=== PATIENT | male | born 1990 | race Caucasian/White ===

== ENCOUNTER 2021-03-15 21:36 | Emergency (ER) | payer OTHER ==
[~2021-03-15] VITALS: Ht 177.8 cm; Wt 83.9 kg
[~2021-03-15 21:36] MED LIST: DOXYCYCLINE 10100 MG PO; IBUPROFEN 600600 M1 PO; IBUPROFEN 800800 M1 PO; KEFLEX500 MG PO; NORCO 5-325 TA1 EACH PO; SENOKOT-S1 TA1 PO; ZOFRAN ODT4 MG PO
[2021-03-15] MEDS ORDERED: ANTIDEPRESSANT (21:45)
[2021-03-15] MEDS ORDERED: GABAPENTIN800 M1 PO (21:45)
[2021-03-15] MEDS ORDERED: TRAZODONE HCL5 GM (21:45)
[2021-03-15] MEDS ORDERED: SUBOXONE 12 MG1 EACH (21:45)
[2021-03-16 00:10] VITALS: BP 108/62
--- NOTE | 2021-03-16 14:04 | EKG ---
[place] [address] ELECTROCARDIOGRAM REPORT Name: JUAN RAMON CROWLEY III Room: [facility]#: [id number] Admission: 03/15/21 Attend Phys: Discharge: 03/16/21 Date of : [birth year] Date of Service: 03/15/212145 Report #: [id number] THIS REPORT FOR: //name// [facility] ED Test Date: 2021-03-15 Test Time: 21:46:02 Pat Name: JUAN RAMON CROWLEY Department: Room: Gender: [employer] Representative: : 1990 Requested By: Mary De Luna Order Number: [id number] Filiberto MD: Jean Claude Crowder Measurements Intervals [place] Rate: 79 P: 49 AK: 184 QRS: 34 QRSD: 93 T: 25 QT: 373 QTc: 428 Interpretive Statements Sinus rhythm ST elev, probable normal early repol pattern No previous ECG available for comparison Electronically Signed On 03-16-2021 14:03:50 CDT by Jean Claude Crowder [email or web address] <ELECTRONICALLY SIGNED> By: Jean Claude Crowder MD, MERGED WITH [facility] 03/16/21 1403 45 45 Jean Claude Crowder MD, FACC /EPI
--- NOTE | 2021-03-16 14:05 | EKG ---
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[facility] : 1990 Requested By: Mary De Luna Order Number: [id number] Filiberto MD: Jean Claude Crowder Measurements Intervals [place] Rate: 71 P: 44 AR: 205 QRS: 27 QRSD: 104 T: 15 QT: 400 QTc: 435 Interpretive Statements Sinus rhythm Borderline prolonged AR interval ST elevation suggests early repolarization and a normal variant Baseline wander in lead(s) I,III,aVR,aVL Compared to ECG 03/15/2021 21:46:02 No significant changes Electronically Signed On 03-16-2021 14:05:08 CDT by Jean Claude Crowder [email or web address] <ELECTRONICALLY SIGNED> By: Jean Claude Crowder MD, [facility] 03/16/21 1405 2327 2327 Jean Claude Crowder MD, [facility] /EPI
== END 2021-03-16 00:10 ==
LOC: M.ERS 21:36
DX: T40.1X1A Poisoning by heroin, accidental (unintentional), initial encounter (principal); F17.210 Nicotine dependence, cigarettes, uncomplicated; Z88.6 Allergy status to analgesic agent; Z88.1 Allergy status to other antibiotic agents; Z79.899 Other long term (current) drug therapy; Z87.442 Personal history of urinary calculi; Z98.890 Other specified postprocedural states; Y92.89 Other specified places as the place of occurrence of the external cause